=== PATIENT | female | born 1960 | race Caucasian/White ===

== ENCOUNTER 2017-12-05 17:38 | Observation (INO) | payer OTHER ==
[~2017-12-05] VITALS: Ht 152.4 cm; Wt 83.9 kg
[~2017-12-05 17:38] MED LIST: METO50ER; Percocet 5-3251 EACH PO; SEASONALE; Zofran4 MG PO
[2017-12-05 18:37] LABS: BASOPHILS ABSOLUTE AUTO 0.03 K/mm3 (0.00-0.23); BASOPHILS PERCENT AUTO 0 % (0-2); EOSINOPHILS ABSOLUTE AUTO 0.15 K/mm3 (0.00-0.68); EOSINOPHILS PERCENT AUTO 2 % (0-6); Hematocrit 42.5 % (33.0-51.0); Hemoglobin 13.7 g/dL (11.5-16.0); IMMATURE GRAN ABSOLUTE AUTO 0.01 K/mm3 (0.00-0.10); IMMATURE GRAN PERCENT AUTO 0 % (0-1); LYMPHOCYTES ABSOLUTE AUTO 3.33 K/mm3 (0.84-5.20); LYMPHOCYTES PERCENT AUTO 43 % (21-46); MONOCYTES ABSOLUTE AUTO 0.53 K/mm3 (0.16-1.47); MONOCYTES PERCENT AUTO 7 % (4-13); Mean Corpuscular HGB 31.2 pg (26.0-34.0); Mean Corpuscular HGB Conc 32.2 g/dL (31.5-36.5); Mean Corpuscular Volume 97 fL (80-100); Mean Platelet Volume 9.5 fL (9.1-12.4); NEUTROPHILS ABSOLUTE AUTO 3.67 K/mm3 (1.96-9.15); NEUTROPHILS PERCENT AUTO 48 % (41-73); Platelet Count 278 K/mm3 (150-400); RDW Coefficient Variation 14.1 % (11.7-14.2); RDW Standard Deviation 50.6 fL (35.1-46.3); Red Blood Cell Count 4.39 M/mm3 (3.80-5.20); White Blood Cell Count 7.72 K/mm3 (4.00-11.30)
[2017-12-05] MEDS ORDERED: AMIT25 PO (18:40)
[2017-12-05] MEDS ORDERED: Travatan Z5 ML BOTHEYES (18:47)
[2017-12-05] MEDS ORDERED: ZESTORETIC 20-121 EA PO (18:47)
[2017-12-05 19:16] LABS: Alanine Aminotransfer (ALT/SGP 32 U/L (12-78); Albumin, Blood 3.4 g/dL (3.4-5.0); Albumin/Globulin Ratio 0.9 (0.8-1.8); Alk Phos 80 U/L (50-136); Anion Gap 9 mmol/L (6-16); Aspartate Aminotrans (AST/SGOT 25 U/L (12-37); Bilirubin, Total 0.2 mg/dL (0.1-1.0); Blood Urea Nitrogen 17 mg/dL (8-24); Bun/Creatinine Ratio 18.9 (12.0-20.0); CO2, Blood 27 mmol/L (21-32); Calcium, Blood 8.9 mg/dL (8.5-10.1); Chloride, Blood 105 mmol/L (98-108); Globulin, Blood 3.7 g/dL (2.2-4.0); Glomerular Filtration Rate >60 (60-); Glucose, Blood 99 mg/dL (70-99); Potassium, Blood 3.9 mmol/L (3.5-5.5); Sodium, Blood 141 mmol/L (136-145); Total Protein, Blood 7.1 g/dL (6.4-8.2); Troponin I <0.015 ng/mL (0.000-0.040)
[2017-12-07] MEDS ORDERED: HYDR1TAB94 PO (08:30)
== END 2017-12-07 11:09 | disposition home or self-care (01) ==
LOC: ER 17:38 → SURS 17:39
PROVIDERS: Internal Medicine
DX: K80.00 Calculus of gallbladder with acute cholecystitis without obstruction (principal); I10 Essential (primary) hypertension; Z88.6 Allergy status to analgesic agent; Z79.899 Other long term (current) drug therapy
CPT/HCPCS: 36415; 71046; 71275; 74300; 80053; 84484; 85025; 88304; 93005; 93010; 96361; 96366; 96374; 96375; 96376; 99285-25; C1729; G0378; J0295; J0690; J1100; J1200; J1885; J2250; J2405; J2765; J3010; J7120; Q9967

== ENCOUNTER → 2018-07-15 | Outpatient (CLI) | payer OTHER ==
[~2018-07-15] MED LIST changes: +AMIT25 PO; +HYDR1TAB94 PO; +Travatan Z5 ML BOTHEYES; +ZESTORETIC 20-121 EA PO
[2018-07-15 13:10] LABS: BASOPHILS ABSOLUTE AUTO 0.02 K/mm3 (0.00-0.23); BASOPHILS PERCENT AUTO 0 % (0-2); EOSINOPHILS ABSOLUTE AUTO 0.14 K/mm3 (0.00-0.68); EOSINOPHILS PERCENT AUTO 2 % (0-6); Hematocrit 41.9 % (33.0-51.0); IMMATURE GRAN ABSOLUTE AUTO 0.01 K/mm3 (0.00-0.10); IMMATURE GRAN PERCENT AUTO 0 % (0-1); LYMPHOCYTES ABSOLUTE AUTO 2.46 K/mm3 (0.84-5.20); LYMPHOCYTES PERCENT AUTO 30 % (21-46); MONOCYTES ABSOLUTE AUTO 0.52 K/mm3 (0.16-1.47); MONOCYTES PERCENT AUTO 6 % (4-13); Mean Corpuscular HGB 31.3 pg (26.0-34.0); Mean Corpuscular HGB Conc 33.4 g/dL (31.5-36.5); Mean Corpuscular Volume 94 fL (80-100); Mean Platelet Volume 10.2 fL (9.1-12.4); NEUTROPHILS ABSOLUTE AUTO 4.98 K/mm3 (1.96-9.15); NEUTROPHILS PERCENT AUTO 61 % (41-73); Platelet Count 282 K/mm3 (150-400); RDW Standard Deviation 47.7 fL (35.1-46.3); Red Blood Cell Count 4.47 M/mm3 (3.80-5.20); White Blood Cell Count 8.13 K/mm3 (4.00-11.30)
[2018-07-15 13:20] LABS: Alanine Aminotransfer (ALT/SGP 38 U/L (12-78); Albumin, Blood 3.3 g/dL (3.4-5.0); Albumin/Globulin Ratio 0.9 (0.8-1.8); Alk Phos 82 U/L (40-126); Anion Gap 8 mmol/L (6-16); Aspartate Aminotrans (AST/SGOT 21 U/L (12-37); Bilirubin, Total 0.3 mg/dL (0.1-1.0); Blood Urea Nitrogen 17 mg/dL (8-24); Bun/Creatinine Ratio 19.1 (12.0-20.0); CO2, Blood 31 mmol/L (21-32); Calcium, Blood 8.6 mg/dL (8.5-10.1); Chloride, Blood 101 mmol/L (98-108); Creatinine, Blood 0.89 mg/dL (0.40-1.00); Globulin, Blood 3.7 g/dL (2.2-4.0); Glomerular Filtration Rate >60 (60-); Glucose, Blood 98 mg/dL (70-99); Potassium, Blood 3.4 mmol/L (3.5-5.5); Sodium, Blood 140 mmol/L (136-145)
== END | disposition home or self-care (01) ==
LOC: LAB SHORT 13:03 → LAB EV 13:03
PROVIDERS: Physician Assistant
DX: R25.2 Cramp and spasm (principal)
CPT/HCPCS: 80053; 85025

== ENCOUNTER 2018-10-17 08:54 | Day surgery (SDC) | payer OTHER ==
[~2018-10-17] VITALS: Ht 152.4 cm; Wt 91.3 kg
[~2018-10-17 08:54] MED LIST changes: +CLARITIN5 MG PO; +MOTION RELIEF25 MG PO
== END 2018-10-17 11:26 | disposition home or self-care (01) ==
LOC: ORSCSDS 08:54
PROVIDERS: Student in an Organized Health Care Education/Training Program
PROC: 0DBN8ZX Excision of Sigmoid Colon, Via Natural or Artificial Opening Endoscopic, Diagnostic (ICD-10-PCS; principal; 2018-10-17 10:15)
PROC: 0DBM8ZX Excision of Descending Colon, Via Natural or Artificial Opening Endoscopic, Diagnostic (ICD-10-PCS; principal; 2018-10-17 10:15)
PROC: 0DBP8ZX Excision of Rectum, Via Natural or Artificial Opening Endoscopic, Diagnostic (ICD-10-PCS; principal; 2018-10-17 10:15)
PROC: 0DBH8ZX Excision of Cecum, Via Natural or Artificial Opening Endoscopic, Diagnostic (ICD-10-PCS; principal; 2018-10-17 10:15)
PROC: 0DBK8ZX Excision of Ascending Colon, Via Natural or Artificial Opening Endoscopic, Diagnostic (ICD-10-PCS; principal; 2018-10-17 10:15)
DX: K92.1 Melena (principal); R15.0 Incomplete defecation; D12.0 Benign neoplasm of cecum; D12.2 Benign neoplasm of ascending colon; D12.5 Benign neoplasm of sigmoid colon; K63.5 Polyp of colon; K62.1 Rectal polyp; K57.30 Diverticulosis of large intestine without perforation or abscess without bleeding; K64.8 Other hemorrhoids; K21.9 Gastro-esophageal reflux disease without esophagitis; I10 Essential (primary) hypertension; I49.9 Cardiac arrhythmia, unspecified; G47.33 Obstructive sleep apnea (adult) (pediatric); E66.01 Morbid (severe) obesity due to excess calories; Z68.39 Body mass index [BMI] 39.0-39.9, adult; Z79.899 Other long term (current) drug therapy
CPT/HCPCS: 88305; J2704; J7120

== ENCOUNTER → 2019-04-21 | Outpatient (CLI) | payer OTHER | END | disposition home or self-care (01) | LOC: LAB EV 17:41 → LAB SHORT 17:41 | DX: R31.9 Hematuria, unspecified (principal) | CPT/HCPCS: 87086 ==

== ENCOUNTER → 2019-05-31 | Outpatient (CLI) | payer OTHER ==
[2019-06-02 15:07] LABS: HPV 16 Negative (Negative); HPV 18 Negative (Negative); HPV OTHER HR TYPES Negative (Negative)
== END | disposition home or self-care (01) ==
LOC: LAB 18:57 → LAB SHORT 18:57
PROVIDERS: Physician Assistant
DX: N93.9 Abnormal uterine and vaginal bleeding, unspecified (principal)
CPT/HCPCS: 87624; G0145

== ENCOUNTER → 2019-06-14 | Outpatient (CLI) | payer OTHER | END | disposition home or self-care (01) | LOC: LAB SHORT 15:09 → PLD 15:09 | DX: N95.0 Postmenopausal bleeding (principal) | CPT/HCPCS: 88305 ==

== ENCOUNTER 2020-02-27 20:45 | Observation (INO) | payer OTHER ==
[~2020-02-27] VITALS: Ht 149.9 cm; Wt 95.2 kg
[~2020-02-27 20:45] MED LIST changes: +Acetaminophen-1 EAC1 PO; +FLUT.05NI; +IBUP800 PO; +OXYC5 PO; -ZESTORETIC 20-121 EA PO; +[UNRECOGNIZED DRUG - REMARK]
[2020-02-27 21:57] LABS: Source, Urine Clean Catch
[2020-02-27 22:03] LABS: Bilirubin, Urine Neg (Neg); Blood, Urine Neg (Neg); Glucose Qualitative, Urine Neg (Neg); Ketones, Urine Neg (Neg); Leukocyte Esterase, Urine Neg (Neg); Nitrite, Urine Neg (Neg); Protein, Urine Neg (Neg); Specific Gravity, Urine 1.005 (1.003-1.022); Urobilinogen, Urine NORM (Normal)
[2020-02-27 22:12] LABS: Appearance, Urine Clear (Clear); Color, Urine Pale Yellow (P-Yellow)
[2020-02-27 22:17] LABS: U Amphetamine Screen Not Detected; U Barbituate Screen Not Detected; U Benzodiazapine Screen Not Detected; U Buprenorphine Screen Not Detected; U Cannabinoids Screen Not Detected; U Cocaine Screen Not Detected; U Methadone Screen Not Detected; U Methamphetamine Screen Not Detected; U Opiates Screen Not Detected; U Oxycodone Screen Not Detected; U Phencyclidine Screen Not Detected; U Propoxyphene Screen Not Detected
[2020-02-27] MEDS ORDERED: ARNUITY ELLIP100 MCG INH (22:25)
[2020-02-27] MEDS ORDERED: LISINOPRIL-HCT1 EACH PO (22:26)
[2020-02-27] MEDS ORDERED: Ventolin/Prove6.7 GM INH (22:26)
[2020-02-27 22:27] LABS: BASOPHILS ABSOLUTE AUTO 0.04 K/mm3 (0.00-0.23); BASOPHILS PERCENT AUTO 1 % (0-2); EOSINOPHILS PERCENT AUTO 3 % (0-6); Hematocrit 47.6 % (33.0-51.0); Hemoglobin 15.7 g/dL (11.5-16.0); IMMATURE GRAN ABSOLUTE AUTO 0.03 K/mm3 (0.00-0.10); IMMATURE GRAN PERCENT AUTO 0 % (0-1); LYMPHOCYTES ABSOLUTE AUTO 3.28 K/mm3 (0.84-5.20); LYMPHOCYTES PERCENT AUTO 41 % (21-46); MONOCYTES ABSOLUTE AUTO 0.37 K/mm3 (0.16-1.47); MONOCYTES PERCENT AUTO 5 % (4-13); Mean Corpuscular HGB 30.7 pg (26.0-34.0); Mean Corpuscular Volume 93 fL (80-100); Mean Platelet Volume 10.2 fL (9.1-12.4); NEUTROPHILS ABSOLUTE AUTO 4.05 K/mm3 (1.96-9.15); NEUTROPHILS PERCENT AUTO 51 % (41-73); NRBC ABSOLUTE 0.03 K/mm3 (0.00-0.02); NRBC Auto 0.4 /100 WBC (0.0-0.2); Platelet Count 258 K/mm3 (150-400); RDW Standard Deviation 44.4 fL (35.1-46.3); Red Blood Cell Count 5.11 M/mm3 (3.80-5.20); White Blood Cell Count 7.97 K/mm3 (4.00-11.30)
[2020-02-27] MEDS ORDERED: DOTTI TD (22:29)
[2020-02-27 22:33] LABS: Alanine Aminotransfer (ALT/SGP 45 U/L (12-78); Albumin, Blood 3.6 g/dL (3.4-5.0); Albumin/Globulin Ratio 0.9 (0.8-1.8); Alk Phos 82 U/L (50-136); Anion Gap 7 mmol/L (6-16); Aspartate Aminotrans (AST/SGOT 33 U/L (12-37); Bilirubin, Total 0.2 mg/dL (0.1-1.0); Blood Urea Nitrogen 13 mg/dL (8-24); Bun/Creatinine Ratio 17.5 (12.0-20.0); CO2, Blood 26 mmol/L (21-32); Calcium, Blood 8.8 mg/dL (8.5-10.1); Chloride, Blood 107 mmol/L (98-108); Creatinine, Blood 0.74 mg/dL (0.40-1.00); Ethanol (Alcohol), Blood, Med 146 mg/dL; Globulin, Blood 3.8 g/dL (2.2-4.0); Glomerular Filtration Rate >60 (60-); Glucose, Blood 79 mg/dL (70-99); Potassium, Blood 3.7 mmol/L (3.5-5.5); Sodium, Blood 140 mmol/L (136-145); Total Protein, Blood 7.4 g/dL (6.4-8.2)
[2020-02-27 22:59] LABS: Acetaminophen, Random <2.0 ug/mL (10.0-30.0)
== END 2020-02-28 11:55 | disposition home or self-care (01) ==
LOC: ER 20:45 → EOR 20:46
PROVIDERS: ADMIT Emergency Medicine
DX: R45.851 Suicidal ideations (principal); I10 Essential (primary) hypertension; Z79.899 Other long term (current) drug therapy; Z88.6 Allergy status to analgesic agent; Z88.5 Allergy status to narcotic agent
CPT/HCPCS: 80053; 81003; 81025; 85025; 99285; G0378; G0480; Q3014

== ENCOUNTER 2020-07-11 13:03 | Emergency (ER) | payer OTHER ==
[~2020-07-11] VITALS: Ht 149.9 cm; Wt 95.2 kg
[~2020-07-11 13:03] MED LIST changes: +ARNUITY ELLIP100 MCG INH; +DOTTI TD; +LISINOPRIL-HCT1 EACH PO; +Ventolin/Prove6.7 GM INH
[2020-07-11 14:21] LABS: Source, Urine Clean Catch
[2020-07-11] MEDS ORDERED: FLUTICASONE-SA1 EAC9 INH (14:24)
[2020-07-11] MEDS ORDERED: MELO7.5 PO (14:25)
[2020-07-11] MEDS ORDERED: TRAM50 PO (14:25)
[2020-07-11 14:26] LABS: Appearance, Urine Hazy (Clear); Bilirubin, Urine Neg (Neg); Blood, Urine Neg (Neg); Color, Urine Amber (P-Yellow); Glucose Qualitative, Urine Neg (Neg); Ketones, Urine 1+ (Neg); Leukocyte Esterase, Urine 1+ (Neg); Nitrite, Urine Neg (Neg); Protein, Urine 1+ (Neg); Specific Gravity, Urine 1.025 (1.003-1.022); Urobilinogen, Urine NORM (Normal)
[2020-07-11 14:35] LABS: Bacteria Many /hpf; Calcium Oxalate Crystals Many /hpf; Red Blood Cells, Urine Not Seen /hpf (0-2); Squamous Epithelial Cells Many /hpf (Few); White Blood Cells, Urine 0-2 /hpf (0-5)
[2020-07-11] MEDS ORDERED: CYCL10 PO (15:02)
[2020-07-11] MEDS ORDERED: LIDO700A20 TOP (15:02)
== END 2020-07-11 15:09 | disposition home or self-care (01) ==
LOC: ER 13:03
PROVIDERS: Emergency Medicine
DX: M54.5 Low back pain (principal); I10 Essential (primary) hypertension; Z88.6 Allergy status to analgesic agent; Z88.5 Allergy status to narcotic agent; Z79.899 Other long term (current) drug therapy
CPT/HCPCS: 81001; 87086; 96372; 99284; A9270; J1885

== ENCOUNTER → 2021-01-20 | Outpatient (CLI) | payer OTHER ==
[~2021-01-20] MED LIST changes: +CYCL10 PO; +FLUTICASONE-SA1 EAC9 INH; +LIDO700A20 TOP; +MELO7.5 PO; +TRAM50 PO
[2021-01-20 17:23] LABS: Adenovirus F 40/41 Not Detected (NOT DETECT); Astrovirus Not Detected (NOT DETECT); Campylobacter Sp Not Detected (NOT DETECT); Cryptosporidium Not Detected (NOT DETECT); Cyclospora Cayetanensis Not Detected (NOT DETECT); E. Coli O157 Not Detected (NOT DETECT); Entamoeba Histolytica Not Detected (NOT DETECT); Enteroaggregative E. coli-EAEC Not Detected (NOT DETECT); Enteropathogenic E. coli-EPEC Not Detected (NOT DETECT); Enterotoxigenic E. coli-ETEC Not Detected (NOT DETECT); Giardia Lamblia Not Detected (NOT DETECT); Norovirus GI/GII Not Detected (NOT DETECT); Plesiomonas Shigelloides Not Detected (NOT DETECT); Rotavirus A Not Detected (NOT DETECT); Salmonella Sp Not Detected (NOT DETECT); Sapovirus Not Detected (NOT DETECT); Shiga Toxin-prod E. coli-STEC Not Detected (NOT DETECT); Shigella/Enteroin E. coli-EIEC Not Detected (NOT DETECT); Vibrio Cholerae Not Detected (NOT DETECT); Vibrio Sp Not Detected (NOT DETECT); Yersinia Enterocolitica Not Detected (NOT DETECT)
== END | disposition home or self-care (01) ==
LOC: LAB SHORT 13:15
PROVIDERS: Physician Assistant
DX: A06.1 Chronic intestinal amebiasis (principal)
CPT/HCPCS: 0097U

== ENCOUNTER → 2022-06-10 | Outpatient (CLI) | payer BC ==
[~2022-06-10] MED LIST changes: +AMOCLA875 PO
== END | disposition home or self-care (01) ==
LOC: LAB SHORT 16:51 → LAB 16:51
DX: N39.0 Urinary tract infection, site not specified (principal)
CPT/HCPCS: 87077; 87086; 87186

== ENCOUNTER → 2022-06-11 | Outpatient (CLI) | payer BC ==
[2022-06-11 14:48] LABS: C DIFFICILE DNA NEGATIVE (Negative)
== END ==
LOC: LAB 11:03 → LAB SHORT 11:03
PROVIDERS: Physician Assistant
DX: A06.1 Chronic intestinal amebiasis (principal)
CPT/HCPCS: 87493

== ENCOUNTER → 2022-07-06 | Outpatient (CLI) | payer BC ==
[2022-07-06 13:51] LABS: Adenovirus F 40/41 Not Detected (NOT DETECT); Astrovirus Not Detected (NOT DETECT); Campylobacter Sp Not Detected (NOT DETECT); Cryptosporidium Not Detected (NOT DETECT); Cyclospora Cayetanensis Not Detected (NOT DETECT); E. Coli O157 Not Detected (NOT DETECT); Entamoeba Histolytica Not Detected (NOT DETECT); Enteroaggregative E. coli-EAEC Not Detected (NOT DETECT); Enteropathogenic E. coli-EPEC Not Detected (NOT DETECT); Enterotoxigenic E. coli-ETEC Not Detected (NOT DETECT); Giardia Lamblia Not Detected (NOT DETECT); Norovirus GI/GII Not Detected (NOT DETECT); Plesiomonas Shigelloides Not Detected (NOT DETECT); Rotavirus A Not Detected (NOT DETECT); Salmonella Sp Not Detected (NOT DETECT); Sapovirus Not Detected (NOT DETECT); Shiga Toxin-prod E. coli-STEC Not Detected (NOT DETECT); Shigella/Enteroin E. coli-EIEC Not Detected (NOT DETECT); Vibrio Cholerae Not Detected (NOT DETECT); Vibrio Sp Not Detected (NOT DETECT); Yersinia Enterocolitica Not Detected (NOT DETECT)
== END | disposition home or self-care (01) ==
LOC: LAB 09:00 → LAB SHORT 09:00
PROVIDERS: Physician Assistant
DX: R11.0 Nausea (principal)
CPT/HCPCS: 87507

== ENCOUNTER 2023-11-09 06:40 | Day surgery (SDC) | payer OTHER ==
[~2023-11-09] VITALS: Ht 149.9 cm; Wt 96.3 kg
[2023-11-09] VITALS (14 sets, daily range): BP systolic 97–126; BP diastolic 54–99
[~2023-11-09 06:40] MED LIST changes: +ALBU90OI INH; +Acetaminophen 500 MG Tab PO SCH; +CeFAZolin Sodium 2,000 MG in NS 100 ML IV SCH; +Chlorhexidine Mouth Care 15 ML UDC MT SCH; +FLUT1DIS5 INH; +GAS RELIEF PO; +KLOR-CON 1010 ME9 PO; +LANS30EC PO; +LISI20 PO; +Lactated Ringer's 1,000 ML IV SCH; +Ropivacaine 0.5% HCl/Pf 123.125 MG,EPINEPHrine HCL 0.25 MG,Ketorolac Tromethamine 15 MG... INFIL SCH
[2023-11-09] MEDS ORDERED: Tranexamic Acid 100 ML IV SCH (06:42)
[2023-11-09] MEDS ORDERED: propofoL 60 ML IV ONE (08:03)
[2023-11-09] MEDS ORDERED: Dexamethasone Sod Phos 10 MG/ML 1ML VIAL ONE (08:03)
[2023-11-09] MEDS ORDERED: Phenylephrine HCl 100 MCG/ML-NS 10MLSYR (1MG/10ML) ONE (08:03)
[2023-11-09] MEDS ORDERED: Ondansetron HCl 2 MG / ML 2ML Vial ONE (08:03)
[2023-11-09] MEDS ORDERED: Midazolam HCl 1MG / ML 2ML Vial ONE (08:11)
--- NOTE | 2023-11-09 08:41 | NUR ---
History, Chart, Medications and Allergies reviewed before start of procedure. Lungs clear T/O to Auscultation. Pre-Op teaching done. Pt verbalizes understanding. Patient reports completing Chlorhexadine shower X2 prior to admission to hospital. Patient confirms NPO status and agrees with scheduled surgery.
[2023-11-09] MEDS ORDERED: DiphenhydrAMINE HCL 25 MG Cap PO PRN (09:35)
[2023-11-09] MEDS ORDERED: Bisacodyl 10 MG Supp PR PRN (09:35)
[2023-11-09] MEDS ORDERED: Promethazine HCl 25 MG Tab PO PRN (09:35)
[2023-11-09] MEDS ORDERED: OxyCODONE HCL 5 MG TAB PO PRN ×2 (09:35→09:40)
[2023-11-09] MEDS ORDERED: Lactated Ringer's 1,000 ML IV SCH (09:40)
[2023-11-09] MEDS ORDERED: Magnesium Hydroxide Conc 10 ML UDC PO PRN (09:40)
[2023-11-09] MEDS ORDERED: Metoclopramide HCl 5MG / ML 2ML Vial IV PRN (09:40)
[2023-11-09] MEDS ORDERED: Ondansetron HCl 2 MG / ML 2ML Vial IV PRN (09:40)
[2023-11-09] MEDS ORDERED: HYDROmorphone HCl/Pf 1MG SYR IV PRN (09:40)
[2023-11-09] MEDS ORDERED: propofoL 20 ML IV ONE (10:01)
[2023-11-09] MEDS ORDERED: LOPE2C PO (11:38)
[2023-11-09] MEDS ORDERED: Albuterol HFA200 ACT/6.7 GM INH INH PRN (12:55)
[2023-11-09] MEDS ORDERED: Mometasone/Formoterol MDI 200/5 mcg 13 GM INH SCH (12:55)
[2023-11-09] MEDS ORDERED: Ondansetron 4 MG TAB PO PRN (13:00)
--- NOTE | 2023-11-09 14:17 | NUR ---
SUMMARY POD 0 R TKA. POST OP VSS. PT REPORTS FULL SENSATION POST SPINAL. UP WITH 1 SBA USING FWW/GB. VOIDING. BLAKE REG DIET. 1 ROXICODONE FOR PAIN CONTROL. AQUACEL/DEVENDRA WRAP/POLAR PACK/SCDS IN PLACE. AT BEDSIDE FOR SUPPORT. USES CALL LIGHT APPROPRIATELY.
--- NOTE | 2023-11-09 14:48 | NUR ---
PT CONT TO DENY ITCHING/RASH AFTER TAKING ORAL ROXICODONE.
--- NOTE | 2023-11-09 15:40 | NUR ---
ASSUMED CARE OF PATIENT AT THIS TIME. THERAPY IN ROOM TO WORK WITH PATIENT. MEDICATED WITH SCHEDULED TYLENOL. WILL CONT TO MONITOR AND TREAT.
[2023-11-09] MEDS ORDERED: CeFAZolin Sodium 2,000 MG in NS 100 ML IV SCH (16:00)
[2023-11-09] MEDS ORDERED: Acetaminophen 500 MG Tab PO SCH (16:00)
[2023-11-09] MEDS ORDERED: Lisinopril 20 MG Tab PO SCH (21:00)
[2023-11-09] MEDS ORDERED: Apixaban 5 MG Tab PO SCH (21:00)
[2023-11-09] MEDS ORDERED: HydroCHLOROthiazide 25 mg Tab PO SCH (21:00)
[2023-11-09] MEDS ORDERED: Docusate Sodium 100 MG Cap PO SCH (21:00)
[2023-11-10 00:15] VITALS: BP 102/67
[2023-11-10 04:52] VITALS: BP 119/74
[2023-11-10 04:54] VITALS: BP 119/74
[2023-11-10 04:56] LABS: BASOPHILS ABSOLUTE AUTO 0.02 K/mm3 (0.00-0.23); BASOPHILS PERCENT AUTO 0 % (0-2); EOSINOPHILS PERCENT AUTO 0 % (0-6); Hematocrit 36.1 % (33.0-51.0); Hemoglobin 12.3 g/dL (11.5-16.0); IMMATURE GRAN ABSOLUTE AUTO 0.06 K/mm3 (0.00-0.10); IMMATURE GRAN PERCENT AUTO 0 % (0-1); LYMPHOCYTES ABSOLUTE AUTO 1.15 K/mm3 (0.84-5.20); LYMPHOCYTES PERCENT AUTO 8 % (21-46); MONOCYTES PERCENT AUTO 7 % (4-13); Mean Corpuscular HGB 30.9 pg (26.0-34.0); Mean Corpuscular HGB Conc 34.1 g/dL (31.5-36.5); Mean Corpuscular Volume 91 fL (80-100); NEUTROPHILS ABSOLUTE AUTO 13.02 K/mm3 (1.96-9.15); NEUTROPHILS PERCENT AUTO 85 % (41-73); Platelet Count 259 K/mm3 (150-400); RDW Coefficient Variation 13.7 % (11.7-14.2); RDW Standard Deviation 45.5 fL (35.1-46.3); Red Blood Cell Count 3.98 M/mm3 (3.80-5.20); White Blood Cell Count 15.25 K/mm3 (4.00-11.30)
--- NOTE | 2023-11-10 05:53 | NUR ---
SHIFT SUMMARY PT POD O RIGHT TOTAL KNEE. PT HAS BEEN UP AND AMBULATING, VOIDING AND TOLERATING PO INTAKE. PT DENIES N/T IN EXT, ABLE TO WIGGLE TOES. SURGICAL SITE WNL. PT PAIN HAS BEEN MINIMAL. PER PT REPORT DR. MONAE AND PT DISCUSSED OXYCODONE ALLERGY, ALLERGY MILD, AND PT REPORTS THAT SHE IS OK WITH TAKING THE OXYCODONE PRN FOR PAIN. PAIN MANAGED WITH MEDS PER EMAR WITHOUT SIDE EFFECTS T/O THE SHIFT. POST OP VITALS STABLE. BED IN LOWEST POSITION, CALL LIGHT WITHIN REACH.
[2023-11-10] MEDS ORDERED: Lansoprazole 15 MG TAB.RAP.DR PO SCH (06:00)
[2023-11-10 06:15] LABS: Bun/Creatinine Ratio 29.2 (12.0-20.0); Calcium, Blood 8.7 mg/dL (8.5-10.1); Creatinine, Blood 0.72 mg/dL (0.40-1.00); Potassium, Blood 3.4 mmol/L (3.5-5.5)
[2023-11-10 07:21] VITALS: BP 116/67
[2023-11-10] MEDS ORDERED: Potassium Chloride 10 Meq Tablet SA PO SCH (09:00)
[2023-11-10] MEDS ORDERED: ELIQUIS2.5 MG PO (09:31)
--- NOTE | 2023-11-10 10:18 | NUR ---
DISCHARGE PT EDUCATED ON AND RECEIVED PRINTED DISCHARGE INSTRUCTIONS AND VERBALIZED AN UNDERSTANDING. PT REPORTS ALREADY FILLING NEW RX PRIOR TO SURGERY. EXTRA AQUACEL DRESSINGS GIVEN TO PT. PT PACKED PERSONAL BELONGINGS AND WAITING FOR RIDE HOME. IV DC'D.
== END 2023-11-10 11:30 | disposition home or self-care (01) ==
LOC: ORSCMMR 06:40 → ORD 08:00 → ORSCMMR 08:15 → SURS 11:04 → ORSCMMR 11-10 11:30 → ORD 11-11 08:00
PROVIDERS: Orthopaedic Surgery
PROC: 0SRC0JA Replacement of Right Knee Joint with Synthetic Substitute, Uncemented, Open Approach (ICD-10-PCS; principal; 2023-11-09 08:15)
DX: M17.11 Unilateral primary osteoarthritis, right knee (principal); J45.909 Unspecified asthma, uncomplicated; K21.9 Gastro-esophageal reflux disease without esophagitis; E78.5 Hyperlipidemia, unspecified; E66.01 Morbid (severe) obesity due to excess calories; Z68.41 Body mass index [BMI] 40.0-44.9, adult; I12.9 Hypertensive chronic kidney disease with stage 1 through stage 4 chronic kidney disease, or unspecified chronic kidney disease; N18.9 Chronic kidney disease, unspecified; Z79.899 Other long term (current) drug therapy
CPT/HCPCS: 36415; 73560-RT; 80048; 85025; 94640; 94664; 94760; 94762; 97110; 97116; 97161; 97530; A9270; C1776; J0171; J0690; J0735; J1100; J1885; J2250; J2371; J2405; J2704; J2795; J7120

== ENCOUNTER 2024-01-04 06:21 | Day surgery (SDC) | payer OTHER ==
[~2024-01-04] VITALS: Ht 149.9 cm; Wt 94.5 kg
[~2024-01-04 06:21] MED LIST changes: -Acetaminophen 500 MG Tab PO SCH; -CeFAZolin Sodium 2,000 MG in NS 100 ML IV SCH; -Chlorhexidine Mouth Care 15 ML UDC MT SCH; +ELIQUIS2.5 MG PO; +LOPE2C PO; -Ropivacaine 0.5% HCl/Pf 123.125 MG,EPINEPHrine HCL 0.25 MG,Ketorolac Tromethamine 15 MG... INFIL SCH
--- NOTE | 2024-01-04 06:33 | NUR ---
Ambulatory in Day SurgeryPre-Op teaching done. Pt verbalizes understanding. History, Chart, Medications and Allergies reviewed before start of procedure.Patient confirms NPO status and agrees with scheduled surgery. Patient States Post-Procedure ride home has been arranged.
[2024-01-04 06:48] VITALS: BP 139/95
[2024-01-04] MEDS ORDERED: Midazolam HCl 1MG / ML 2ML Vial ONE (07:29)
[2024-01-04] MEDS ORDERED: FentaNYL Citrate 50 MCG/ML 2 ML Injection ONE (07:31)
[2024-01-04] MEDS ORDERED: propofoL 20 ML IV ONE (07:31)
[2024-01-04] MEDS ORDERED: Midazolam HCl 1MG / ML 2ML Vial IV ONE (07:35)
[2024-01-04] MEDS ORDERED: Ondansetron HCl 2 MG / ML 2ML Vial ONE (07:45)
[2024-01-04] MEDS ORDERED: Dexamethasone Sod Phos 10 MG/ML 1ML VIAL ONE (07:45)
[2024-01-04 07:48] VITALS: BP 118/84
--- NOTE | 2024-01-04 07:48 | NUR ---
PT TO DAY SURGERY STEP DOWN FROM OR; BEDSIDE REPORT RECEIVED. PT HAD RIGHT KNEE MANIPTION. PT IS AWAKE,ALERT AND ORIENTED; ABLE TO MOVE SELF IN BED. VSS. PT HAS NO COMPLAINTS.
[2024-01-04 07:55] VITALS: BP 121/78
[2024-01-04] MEDS ORDERED: OxyCODONE HCL 5 MG TAB PO PRN (08:05)
--- NOTE | 2024-01-04 08:17 | NUR ---
POLAR PACK TO RIGHT KNEE
--- NOTE | 2024-01-04 08:21 | NUR ---
PT TOLERATING PO FLUIDS AND CRACKERS. Discharge instructions reviewed with patient. Patient verbalizes understanding. Copy given to patient to take home. Patient States Post-Procedure ride home has been arranged.
[2024-01-04 08:30] VITALS: BP 125/78
--- NOTE | 2024-01-04 08:46 | NUR ---
Patient up to Ambulate independently. Gait steady. Discharged via wheelchair to private car for ride home.
== END 2024-01-04 08:47 | disposition home or self-care (01) ==
LOC: ORSCMMR 06:21 → ORD 07:45 → ORSCMMR 08:47
PROVIDERS: Orthopaedic Surgery
PROC: 0SSCXZZ Reposition Right Knee Joint, External Approach (ICD-10-PCS; principal; 2024-01-04 07:45)
DX: M24.661 Ankylosis, right knee (principal); Z96.651 Presence of right artificial knee joint; I10 Essential (primary) hypertension; I47.10 Supraventricular tachycardia, unspecified; G47.33 Obstructive sleep apnea (adult) (pediatric); M19.90 Unspecified osteoarthritis, unspecified site; E78.5 Hyperlipidemia, unspecified; E66.9 Obesity, unspecified; Z68.41 Body mass index [BMI] 40.0-44.9, adult; Z79.899 Other long term (current) drug therapy
CPT/HCPCS: A9270; J1100; J2250; J2405; J2704; J3010; J7120

== ENCOUNTER 2024-05-22 21:59 | Emergency (ER) | payer OTHER ==
[~2024-05-22] VITALS: Ht 162.6 cm; Wt 81.7 kg
[~2024-05-22 21:59] MED LIST changes: -Lactated Ringer's 1,000 ML IV SCH
[2024-05-22] MEDS ORDERED: Haloperidol Lactate Inj. 5 MG/ML Injection IM ONE (22:15)
[2024-05-22 22:58] LABS: Source, Urine Clean Catch
[2024-05-22 23:04] LABS: Bilirubin, Urine Neg (Neg); Blood, Urine Neg (Neg); Glucose Qualitative, Urine Neg (Neg); Ketones, Urine Neg (Neg); Leukocyte Esterase, Urine Neg (Neg); Nitrite, Urine Neg (Neg); Protein, Urine Neg (Neg); Specific Gravity, Urine 1.005 (1.003-1.022); Urobilinogen, Urine NORM (Normal)
[2024-05-22 23:07] LABS: Appearance, Urine Clear (Clear); Color, Urine Pale Yellow (P-Yellow)
[2024-05-22 23:14] LABS: U Amphetamine Screen Not Detected; U Barbituate Screen Not Detected; U Benzodiazapine Screen Not Detected; U Buprenorphine Screen Not Detected; U Cannabinoids Screen Not Detected; U Cocaine Screen Not Detected; U Methadone Screen Not Detected; U Methamphetamine Screen Not Detected; U Opiates Screen Not Detected; U Oxycodone Screen Not Detected; U Phencyclidine Screen Not Detected
[2024-05-22 23:15] VITALS: BP 99/67
== END 2024-05-22 23:39 | disposition home or self-care (01) ==
LOC: ER 21:59
PROVIDERS: Student in an Organized Health Care Education/Training Program
DX: M25.561 Pain in right knee (principal); W18.30XA Fall on same level, unspecified, initial encounter; F10.929 Alcohol use, unspecified with intoxication, unspecified; I10 Essential (primary) hypertension; J45.909 Unspecified asthma, uncomplicated; Z96.651 Presence of right artificial knee joint; Z88.5 Allergy status to narcotic agent; Z88.8 Allergy status to other drugs, medicaments and biological substances; Z79.899 Other long term (current) drug therapy
CPT/HCPCS: 73562-RT; 81003; 96372; 99284-25; J1630

== ENCOUNTER 2025-01-01 09:27 | Day surgery (SDC) | payer OTHER ==
[~2025-01-01] VITALS: Ht 152.4 cm; Wt 96.0 kg
[2025-01-01] MEDS ORDERED: DULERA 100 MCG/13 GM INH (10:14)
[2025-01-01] MEDS ORDERED: ATORVASTATIN CA20 MG PO (10:14)
[2025-01-01] MEDS ORDERED: CeFAZolin Sodium 2,000 MG VIAL ONE (10:20)
[2025-01-01] MEDS ORDERED: LISI20 PO (10:23)
[2025-01-01] MEDS ORDERED: Dexmedetomidine HCL 200 MCG / 2 ML ONE (10:43)
[2025-01-01] MEDS ORDERED: Dexamethasone Sod Phos 10 MG/ML 1ML VIAL XX ONE (10:43)
[2025-01-01] MEDS ORDERED: Ondansetron HCl 2 MG / ML 2ML Vial IV ONE (10:43)
[2025-01-01] MEDS ORDERED: FentaNYL Citrate 50 MCG/ML 2 ML Injection ONE (10:44)
[2025-01-01] MEDS ORDERED: Midazolam HCl 1MG / ML 2ML Vial ONE (10:44)
[2025-01-01] MEDS ORDERED: Bupivacaine 0.5% W/EPI 1:200000 SDV 30 ML Vial ONE (10:56)
--- NOTE | 2025-01-01 11:03 | NUR ---
01/01/25 1103 Elinor Merritt TIME OUT FOR POPLITEAL BLOCK AT 1054 WITH ALEX BARTH AND DR FIGUEREDO. PULSE OXIMETRY IN PLACE DURING PROCEDURE. PULSE OXIMETER SHOWING 99% ON RA THROUGHOUT. START TIME AT 1059. END TIME AT 1102. PT TOLERATED WELL.
[2025-01-01] MEDS ORDERED: Rocuronium Bromide 10 MG/ML 5ML Injection IV ONE (11:05)
[2025-01-01] MEDS ORDERED: Sugammadex Sodium 200 MG/2ML SDV (100 MG/ML) ONE (11:59)
--- NOTE | 2025-01-01 15:39 | NUR ---
01/01/25 1539 MorenoSarabjit stone ASSUMED CARE FROM DEEPAK AT 1329. PT STATED SHE HAD 7/10 PAIN (FLACC 0-2/10). PT VERY ANXIOUS WHILE INITIALLY ATTEMPTING TO TRANSFER FROM WHEELCHAIR TO VEHICLE, THOUGH SHE APPEARED CAPABLE. PT'S RETURNED HOME TO RETRIEVE A VEHICLE LOWER IN HEIGHT. PT WAS ABLE TO TRANSFER TO SECOND VEHICLE. PT DESCRIBED PAIN TOLERABLE PRIOR TO D/C AND EXPRESSED READINESS TO RETURN HOME.
[2025-01-01 15:41] VITALS: BP 123/88
== END 2025-01-01 14:10 | disposition home or self-care (01) ==
LOC: ORSCSDS 09:27
PROVIDERS: Podiatrist Foot & Ankle Surgery
PROC: 0SGK04Z Fusion of Right Tarsometatarsal Joint with Internal Fixation Device, Open Approach (ICD-10-PCS; principal; 2025-01-01 11:15)
DX: M21.611 Bunion of right foot (principal); I10 Essential (primary) hypertension; G47.33 Obstructive sleep apnea (adult) (pediatric); K21.9 Gastro-esophageal reflux disease without esophagitis; J45.909 Unspecified asthma, uncomplicated; I48.91 Unspecified atrial fibrillation; E66.01 Morbid (severe) obesity due to excess calories; Z68.41 Body mass index [BMI] 40.0-44.9, adult; Z79.899 Other long term (current) drug therapy
CPT/HCPCS: A6253; A9270; C1713; J0690; J1100; J2250; J2405; J2704; J3010; J7120